=== PATIENT | male | born 1990 | race Caucasian/White ===

== ENCOUNTER → 2020-07-30 | Outpatient (CLI) | payer BC | END | disposition home or self-care (01) | LOC: LABWHC1 13:56 | PROVIDERS: ATTEND Emergency Medicine | DX: Z20.828 Contact with and (suspected) exposure to other viral communicable diseases (principal) | CPT/HCPCS: U0003; C9803 ==

== ENCOUNTER → 2020-10-22 | Outpatient (CLI) | payer BC | END | disposition home or self-care (01) | LOC: LABWHC1 14:12 | PROVIDERS: ATTEND Emergency Medicine | DX: Z20.822 Contact with and (suspected) exposure to COVID-19 (principal) | CPT/HCPCS: U0003; C9803; U0005 ==

== ENCOUNTER 2021-11-24 02:58 | Emergency (ER) | payer BC ==
[2021-11-24] MEDS ORDERED: ONDANSETRON 4 MG/2 ML VIAL IVP STA (03:26)
[2021-11-24] MEDS ORDERED: SODIUM CHLORIDE 0.9% 2,000 ML IV STA (03:26)
--- NOTE | 2021-11-24 03:29 | ED ---
Nausea/Vomiting/Diarrhea HPI - General Chief complaint: Nausea/Vomiting/Diarrhea Stated complaint: Vomiting Time Seen by Provider: 11/24/21 03:14 Source: patient, family Mode of arrival: ambulatory Limitations: no limitations - History of Present Illness MD complaint: nausea, vomiting Onset/Timin -: days(s) Description of Vomiting: food contents, blood-streaked Location: epigastric Radiation: none Severity: mild Quality: other (Burning) Consistency: intermittent Improves with: none Worsens with: none Associated Symptoms: denies other symptoms - Related Data Previous Rx's Medication Instructions Recorded Ondansetron Odt [Zofran ODT] 4 mg PO Q8HR PRN #10 tab 11/24/21 Allergies Allergy/AdvReac Type Severity Reaction Status Date / Time No Known Allergies Allergy Verified 11/24/21 03:06 Review of Systems ROS Statement: Those systems with pertinent positive or pertinent negative responses have been documented in the HPI. ROS Other: All systems not noted in ROS Statement are negative. Constitutional: Denies: fever, chills Respiratory: Denies: cough, dyspnea Cardiovascular: Denies: chest pain, palpitations, edema, syncope Gastrointestinal: Reports: abdominal pain, nausea, vomiting. Denies: diarrhea, constipation, melena, hematochezia Genitourinary: Denies: dysuria, hematuria, testicular pain Musculoskeletal: Denies: back pain Skin: Denies: rash Neurological: Denies: headache Hematological/Lymphatic: Denies: easy bleeding Past Medical History Additional Past Medical History / Comment(s): anxiety PTSD depression History of Any Multi-Drug Resistant Organisms: None Reported Past Surgical History: Orthopedic Surgery Past Psychological History: Anxiety, Depression, PTSD Smoking Status: Current every day smoker Past Alcohol Use History: Daily Past Drug Use History: None Reported General Exam Limitations: no limitations General appearance: alert, in no apparent distress Head exam: Present: atraumatic, normocephalic Eye exam: Present: normal appearance. Absent: scleral icterus, conjunctival injection ENT exam: Present: mucous membranes dry Neck exam: Present: normal inspection Respiratory exam: Present: normal lung sounds bilaterally. Absent: respiratory distress, wheezes, rales, rhonchi, stridor Cardiovascular Exam: Present: regular rate, normal rhythm, normal heart sounds. Absent: systolic murmur, diastolic murmur, rubs, gallop GI/Abdominal exam: Present: soft. Absent: distended, tenderness, guarding, rebound, rigid, mass Extremities exam: Present: normal inspection, normal capillary refill. Absent: pedal edema, calf tenderness Back exam: Present: normal inspection. Absent: CVA tenderness (R), CVA tenderness (L) Neurological exam: Present: alert Skin exam: Present: warm, dry, intact, normal color. Absent: rash Course Vital Signs 11/24/21 11/24/21 11/24/21 03:00 03:21 04:06 Temperature 98.8 F 98.9 F 98.5 F Pulse Rate 102 H 92 90 Respiratory 22 18 16 Rate Blood Pressure 111/70 123/80 128/76 O2 Sat by Pulse 97 97 98 Oximetry Medical Decision Making - Lab Data Result diagrams: 11/24/21 03:26 11/24/21 03:26 Lab Results 11/24/21 11/24/21 11/24/21 Range/Units 03:26 03:26 03:26 WBC 11.8 H (3.8-10.6) k/uL RBC 4.69 (4.30-5.90) m/uL Hgb 15.7 (13.0-17.5) gm/dL Hct 44.3 (39.0-53.0) % MCV 94.3 (80.0-100.0) fL MCH 33.3 (25.0-35.0) pg MCHC 35.3 (31.0-37.0) g/dL RDW 12.0 (11.5-15.5) % Plt Count 342 (150-450) k/uL MPV 7.4 Neutrophils % 78 % Lymphocytes % 15 % Monocytes % 5 % Eosinophils % 1 % Basophils % 1 % Neutrophils # 9.2 H (1.3-7.7) k/uL Lymphocytes # 1.8 (1.0-4.8) k/uL Monocytes # 0.5 (0-1.0) k/uL Eosinophils # 0.1 (0-0.7) k/uL Basophils # 0.1 (0-0.2) k/uL Sodium 137 (137-145) mmol/L Potassium 3.4 L (3.5-5.1) mmol/L Chloride 101 (98-107) mmol/L Carbon Dioxide 23 (22-30) mmol/L Anion Gap 13 mmol/L BUN 23 H (9-20) mg/dL Creatinine 0.81 (0.66-1.25) mg/dL Est GFR (CKD-EPI)AfAm >90 (>60 ml/min/1.73 sqM) Est GFR (CKD-EPI)NonAf >90 (>60 ml/min/1.73 sqM) Glucose 105 H (74-99) mg/dL Calcium 9.3 (8.4-10.2) mg/dL Total Bilirubin 0.9 (0.2-1.3) mg/dL AST 30 (17-59) U/L ALT 16 (4-49) U/L Alkaline Phosphatase 93 (38-126) U/L Total Protein 7.2 (6.3-8.2) g/dL Albumin 4.3 (3.5-5.0) g/dL Amylase 58 (30-110) U/L Lipase 119 (23-300) U/L Urine Color Dark Yellow Urine Appearance Cloudy (Clear) Urine pH 7.0 (5.0-8.0) Ur Specific Ramer 1.035 (1.001-1.035) Urine Protein 2+ H (Negative) Urine Glucose (UA) Negative (Negative) Urine Ketones 2+ H (Negative) Urine Blood Negative (Negative) Urine Nitrite Negative (Negative) Urine Bilirubin 1+ H (Negative) Urine Urobilinogen 6.0 (<2.0) mg/dL Ur Leukocyte Esterase Negative (Negative) Urine RBC 2 (0-5) /hpf Urine WBC 1 (0-5) /hpf Ur Squamous Epith Cells 1 (0-4) /hpf Urine Bacteria Rare H (None) /hpf Urine Mucus Many H (None) /hpf Disposition Clinical Impression: Vomiting Disposition: HOME SELF-CARE Condition: Good Instructions (If sedation given, give patient instructions): Acute Nausea and Vomiting (ED) Prescriptions: Ondansetron Odt [Zofran ODT] 4 mg PO Q8HR PRN #10 tab PRN Reason: Nausea Is patient prescribed a controlled substance at d/c from ED?: No Referrals: Roshan Parham DO [Primary Care Provider] - 1-2 days
[2021-11-24 03:54] LABS: Basophils # (A) 0.1 k/uL (0-0.2); Basophils % (A) 1 %; Eosinophils # (A) 0.1 k/uL (0-0.7); Eosinophils % (A) 1 %; HCT 44.3 % (39.0-53.0); HGB 15.7 gm/dL (13.0-17.5); Lymphocytes # (A) 1.8 k/uL (1.0-4.8); Lymphocytes % (A) 15 %; MCH 33.3 pg (25.0-35.0); MCHC 35.3 g/dL (31.0-37.0); MCV 94.3 fL (80.0-100.0); Mean Platelet Volume 7.4; Monocytes # (A) 0.5 k/uL (0-1.0); Monocytes % (A) 5 %; Neutrophils # (A) 9.2 k/uL (1.3-7.7); Neutrophils % (A) 78 %; Platelet Count 342 k/uL (150-450); RBC 4.69 m/uL (4.30-5.90); WBC 11.8 k/uL (3.8-10.6)
[2021-11-24 04:01] LABS: Appearance,Urine Cloudy (Clear); Bacteria,Urine Rare /hpf; Bilirubin,Urine 1+ (Negative); Blood,Urine Negative (Negative); Color,Urine Dark Yellow; Glucose,Urine (UA) Negative (Negative); Ketones,Urine 2+ (Negative); Leukocyte Esterase,Urine Negative (Negative); Mucus,Urine Many /hpf; Nitrite,Urine Negative (Negative); Protein,Urine 2+ (Negative); RBC,Urine 2 /hpf (0-5); Specific Gravity,Urine 1.035 (1.001-1.035); Squamous Epithelial Cell,Urine 1 /hpf (0-4); WBC,Urine 1 /hpf (0-5)
[2021-11-24 04:10] LABS: ALT 16 U/L (4-49); AST 30 U/L (17-59); African American GFR (CKD) >90 (>60 ml/min/1.73 sqM); Albumin 4.3 g/dL (3.5-5.0); Alkaline Phosphatase 93 U/L (38-126); Amylase 58 U/L (30-110); Anion Gap 13 mmol/L; Blood Urea Nitrogen 23 mg/dL (9-20); Calcium 9.3 mg/dL (8.4-10.2); Carbon Dioxide 23 mmol/L (22-30); Chloride 101 mmol/L (98-107); Glucose 105 mg/dL (74-99); Lipase 119 U/L (23-300); Non-African American GFR(CKD) >90 (>60 ml/min/1.73 sqM); Potassium 3.4 mmol/L (3.5-5.1); Sodium 137 mmol/L (137-145); Total Bilirubin 0.9 mg/dL (0.2-1.3); Total Protein 7.2 g/dL (6.3-8.2)
[2021-11-24] MEDS ORDERED: KETOROLAC 15 MG/ML 1 ML VIAL IVP STA (04:18)
[2021-11-24] MEDS ORDERED: SODIUM CHLORIDE 0.9% 1,000 ML IV ONE (04:18)
[2021-11-24] MEDS ORDERED: FAMOTIDINE 20 MG/2 ML VIAL IV STA (04:18)
[2021-11-24 05:02] VITALS: BP 128/76; PULSE 90; RESP 16; TEMP 98.5
== END 2021-11-24 07:26 | disposition home or self-care (01) ==
LOC: EC 02:58
DX: R11.2 Nausea with vomiting, unspecified (principal); F41.9 Anxiety disorder, unspecified; F32.A Depression, unspecified; F43.10 Post-traumatic stress disorder, unspecified; F17.200 Nicotine dependence, unspecified, uncomplicated
CPT/HCPCS: 99284; 96374; 96375 ×2; 36415; 80053; 82150; 83690; 85025; 81001; J2405; J1885